=== PATIENT | male | born 1960 | race African-American/Black ===

== ENCOUNTER 2019-02-08 09:30 | Emergency (ER) | payer OTHER ==
[~2019-02-08] VITALS: Ht 175.3 cm; Wt 117.0 kg
[2019-02-08] MEDS ORDERED: PREDNISONE50 MG PO (10:27)
[2019-02-08] MEDS ORDERED: PEPCID20 MG PO (10:27)
[2019-02-08 10:52] VITALS: BP 179/86
== END 2019-02-08 10:53 | disposition home or self-care (01) ==
LOC: M.ERS 09:30
DX: R22.0 Localized swelling, mass and lump, head (principal); T46.4X5A Adverse effect of angiotensin-converting-enzyme inhibitors, initial encounter; I10 Essential (primary) hypertension; Y92.89 Other specified places as the place of occurrence of the external cause